=== PATIENT | female | born 1965 | race Caucasian/White ===

== ENCOUNTER 2018-03-13 15:35 | Emergency (ER) | payer MEDICAID | END 2018-03-13 15:40 | disposition home or self-care (01) | LOC: FTE 15:35 → E/R 15:40 | DX: S52.571A Other intraarticular fracture of lower end of right radius, initial encounter for closed fracture (principal); W18.39XA Other fall on same level, initial encounter; Y92.9 Unspecified place or not applicable | CPT/HCPCS: 73090; 73090-RT; 73110-RT; 73130-RT; 99283-25 ==